=== PATIENT | male | born 1995 | race Two or more races ===

== ENCOUNTER 2017-03-20 15:54 | Emergency (ER) | payer MEDICAID ==
[~2017-03-20] VITALS: Ht 170.2 cm; Wt 59.0 kg
[2017-03-20] MEDS ORDERED: IBUPROFEN600 MG ORAL (16:12)
[2017-03-20] MEDS ORDERED: NKM (16:14)
[2017-03-20 16:17] VITALS: BP 126/77
--- NOTE | 2017-03-20 16:23 | Emergency Room Report ---
History of Present Illness General Chief Complaint: General Complaint Source: Patient Present Illness HPI 21-year-old male presents to the emergency department complaining of 4/10 in severity localized chronic dull pain in the posterior scalp x14 years. States that he noticed his symptoms after falling and hitting his head when he was a child. Patient states that he was evaluated by his primary care provider shortly after the incident who stated that everything was fine and that he did not need further workup. Patient states that he has had symptoms ever since mild swelling palpable area to the posterior scalp he states that over the course of the last 4 weeks he is noticing more prominently especially when he lays down and a place pressure on a portion of the head he will notice a 4/10 in severity discomfort. Patient denies vomiting, nausea, fevers, chills, significant changes in weight, dizziness, headaches. Denies new trauma or fall or changes from previous chronic symptoms. Allergies: Coded Allergies: No Known Allergies (Unverified , 03/20/17) Patient History Past Medical History: see triage record Past Surgical History: none Pertinent Family History: none Reviewed Nursing Documentation: PMH: Agreed, PSxH: Agreed Nursing Documentation-PMH Past Medical History: No Stated History Review of Systems All Other Systems: negative except mentioned in HPI Physical Exam Vital Signs Date Time Temp Pulse Resp B/P (MAP) Pulse Ox O2 Delivery O2 Flow Rate FiO2 03/20/17 16:07 98.6 105 16 126/77 99 Room Air Sp02 EP Interpretation: reviewed, normal General Appearance: no apparent distress, alert, GCS 15, non-toxic Head: normocephalic, atraumatic, other - palpable 1cm lipoma on posterior occipital scalp. no LAD, no open wounds. Eyes: bilateral eye normal inspection, bilateral eye PERRL ENT: hearing grossly normal, normal voice Neck: full range of motion Respiratory: lungs clear, normal breath sounds, speaking full sentences Cardiovascular #1: regular rate, rhythm Musculoskeletal: back normal, gait/station normal, normal range of motion, non- tender Neurologic: alert, oriented x3, responsive, motor strength/tone normal, sensory intact, speech normal Skin: normal color, no rash, warm/dry, well hydrated, other - palpable 1cm lipoma on posterior occipital scalp. no LAD, no open wounds. no erythema, no increased temperature to palpation. Lymphatic: no adenopathy Medical Decision Making PA Attestation Dr. Newberry is my supervising Physician whom patient management has been discussed with. Diagnostic Impression: Primary Impression: Lipoma of scalp ER Course 21-year-old male presents to the emergency department complaining of 4/10 in severity localized chronic dull pain in the posterior scalp x14 years. States that he noticed his symptoms after falling and hitting his head when he was a child. Patient states that he was evaluated by his primary care provider shortly after the incident who stated that everything was fine and that he did not need further workup. Patient states that he has had symptoms ever since mild swelling palpable area to the posterior scalp he states that over the course of the last 4 weeks he is noticing more prominently especially when he lays down and a place pressure on a portion of the head he will notice a 4/10 in severity discomfort. Patient denies vomiting, nausea, fevers, chills, significant changes in weight, dizziness, headaches. Denies new trauma or fall or changes from previous chronic symptoms. Ddx considered but are not limited to lipoma, liposarcoma, malignancy, cyst, abscess is to name a few Vital signs: are WNL, pt. is afebrile H&PE are most consistent with scalp lipoma ORDERS: none required at this time, the diagnosis is clinical ED INTERVENTIONS: None required at this time. Discussed with patient that he needs to followup with his primary care provider or a bilingual trainer if his symptoms continue to persist and they can discuss surgical removal/excision. Discussed with patient I do not feel there is an emergent condition that exists at this time and he is stable for outpatient followup and conservative management. DISCHARGE: At this time pt. is stable for d/c to home. Will provide printed patient care instructions, and any necessary prescriptions. Care plan and follow up instructions have been discussed with the patient prior to discharge. Last Vital Signs Date Time Temp Pulse Resp B/P (MAP) Pulse Ox O2 Delivery O2 Flow Rate FiO2 03/20/17 16:17 98.6 68 16 126/77 99 Room Air Disposition: HOME, SELF-CARE Condition: Stable Scripts Ibuprofen* (MOTRIN*) 600 Mg Tablet 600 MG ORAL THREE TIMES A DAY, #30 TAB 0 Refills Prov: Farida Romero P.A. 03/20/17 Patient Instructions: Lipoma Additional Instructions: Take medications as directed. Follow up with a Primary Care Provider in 3-5 days, even if your symptoms have resolved. --Please review list of primary care clinics, if you do not already have a primary care provider Return sooner to ED if new symptoms occur, or current symptoms become worse. - Please note that this Emergency Department Report was dictated using [employer] truck crane operator technology software, occasionally this can lead to erroneous entry secondary to interpretation by the dictation equipment. Farida Romero Mar 20, 2017 16:23
[2017-03-20 16:51] VITALS: BP 126/77
== END 2017-03-20 16:53 | disposition home or self-care (01) ==
LOC: EMR 16:30
DX: D17.0 Benign lipomatous neoplasm of skin and subcutaneous tissue of head, face and neck (principal)
CPT/HCPCS: 99283

== ENCOUNTER 2017-12-18 17:14 | Emergency (ER) | payer MEDICAID ==
[~2017-12-18] VITALS: Ht 170.2 cm; Wt 59.9 kg
[~2017-12-18 17:14] MED LIST: IBUPROFEN600 MG ORAL; NKM
[2017-12-18 17:29] VITALS: BP 127/85
--- NOTE | 2017-12-18 17:35 | Emergency Room Report ---
History of Present Illness General Chief Complaint: Abdominal Pain Source: Patient Present Illness HPI 22 YO male presents to the ED C/o intermittent 7/10 in severity pressure type pain in the RLQ just under the right side of the belly button that occurs when he is standing or carrying something. pt. denies ever experiencing symptoms while lying down. pt. reports has also noticed during a BM. pt. reports applying firm pressure and bending slightly forward usually relieves the pain, he reports symptoms never last more than a few minutes. estimates frequency of occurrences to be about once every week or every-other week. pt. states symptoms somewhat more frequent over the last 2 months however he states he has experienced these symptoms in the past as well just not as often. Pt. also c/o of some nausea when he wakes up in the morning with epigastric burning sensation that is relieved once he eats breakfast. pt. denies vomiting, fevers, chills, diarrhea or recent travel. Denies dysuria, hematuria or migration of his pain. Denies penile d/c, swollen tender lymph nodes, rashes, testicular pain or swelling. Allergies: Coded Allergies: No Known Allergies (Unverified , 03/20/17) Patient History Past Medical History: see triage record Past Surgical History: unable to obtain Pertinent Family History: none Immunizations: UTD Reviewed Nursing Documentation: PMH: Agreed; PSxH: Agreed Nursing Documentation-PMH Past Medical History: No Stated History Review of Systems All Other Systems: negative except mentioned in HPI Physical Exam Vital Signs Date Time Temp Pulse Resp B/P (MAP) Pulse Ox O2 Delivery O2 Flow Rate FiO2 12/18/17 17:19 97.4 75 18 127/85 96 Room Air 97.3 Sp02 EP Interpretation: reviewed, normal General Appearance: no apparent distress, alert, GCS 15, non-toxic Head: normocephalic, atraumatic Eyes: bilateral eye normal inspection, bilateral eye PERRL ENT: hearing grossly normal, normal voice Neck: full range of motion Respiratory: lungs clear, normal breath sounds, speaking full sentences Cardiovascular #1: regular rate, rhythm Gastrointestinal: normal bowel sounds, non tender, soft, no peritonitis, non- distended, no guarding, no hernia - no palpable or visible hernia Genitourinary: normal inspection, no CVA tenderness, other - no inguinal hernias- Taras = chapperone Musculoskeletal: back normal, gait/station normal, normal range of motion, non- tender Neurologic: alert, oriented x3, responsive, motor strength/tone normal, sensory intact, normal gait, speech normal, grossly normal Psychiatric: judgement/insight normal Skin: normal color, no rash, warm/dry, well hydrated Lymphatic: no adenopathy Medical Decision Making PA Attestation Dr. Santana is my supervising Physician whom patient management has been discussed with. Diagnostic Impression: Primary Impression: Abdominal pain Qualified Codes: R10.31 - Right lower quadrant pain Additional Impression: Abdominal wall hernia ER Course 22 YO male presents to the ED C/o intermittent 10/18 in severity pressure type pain in the RLQ just under the right side of the belly button that occurs when he is standing or carrying something. pt. denies ever experiencing symptoms while lying down. pt. reports has also noticed during a BM. pt. reports applying firm pressure and bending slightly forward usually relieves the pain, he reports symptoms never last more than a few minutes. estimates frequency of occurrences to be about once every week or every-other week. pt. states symptoms somewhat more frequent over the last 2 months however he states he has experienced these symptoms in the past as well just not as often. Pt. also c/o of some nausea when he wakes up in the morning with epigastric burning sensation that is relieved once he eats breakfast. pt. denies vomiting, fevers, chills, diarrhea or recent travel. Denies dysuria, hematuria or migration of his pain. Denies penile d/c, swollen tender lymph nodes, rashes, testicular pain or swelling. Ddx considered but are not limited to Hernia ( reducible, strangulated, or incarcerated ), acute appendicitis, LGV, renal calculi , IBS just to name a few. Roll Forming Supervisor for inguinal hernia exam was LUCAS Grajeda. Vital signs: are WNL, pt. is afebrile H&PE are most consistent with benign abdominal and genital exam, no obvious visible or palpable hernias, no evidence to suggest acute abdomen pt. NAD during exam. Mild TTP illicited in the RLQ close to the midline. Likely pt. has reducible hernia that has already been reduced. ORDERS: none required at this time, the diagnosis is clinical ED INTERVENTIONS: None required at this time. -I do not identify an emergent condition at this time. With current presentation , pt. is stable for close outpatient follow up/further evaluation and conservative treatment. D/w pt. to return promptly to ED with worsening or new symptoms.- Pt. verbalizes understanding and agreement with proposed treatment plan.proposed treatment plan. DISCHARGE: At this time pt. is stable for d/c to home. Will provide printed patient care instructions, and any necessary prescriptions. Care plan and follow up instructions have been discussed with the patient prior to discharge. Last Vital Signs Date Time Temp Pulse Resp B/P (MAP) Pulse Ox O2 Delivery O2 Flow Rate FiO2 12/18/17 17:29 97.3 75 18 127/85 96 Room Air 97.3 Disposition: HOME, SELF-CARE Condition: Stable Scripts Psyllium Husk (PSYLLIUM FIBER) 0.52 Gm Capsule 0.52 GM PO BID, #30 CAP Prov: Farida Romero 12/18/17 Patient Instructions: Hernia, Adult Additional Instructions: Take medications as directed. Follow up with a Primary Care Provider in 3-5 days, even if your symptoms have resolved. --Please review list of primary care clinics, if you do not already have a primary care provider Return sooner to ED if new symptoms occur, or current symptoms become worse. - Please note that this Emergency Department Report was dictated using [email or web address] technology software, occasionally this can lead to erroneous entry secondary to interpretation by the dictation equipment. Farida Romero Dec 18, 2017 17:34
[2017-12-18] MEDS ORDERED: PSYLLIUM FIBE0.52 G1 PO (18:00)
[2017-12-18 18:05] VITALS: BP 127/85
== END 2017-12-18 18:06 | disposition home or self-care (01) ==
LOC: EMR 17:41
DX: K43.9 Ventral hernia without obstruction or gangrene (principal)
CPT/HCPCS: 99282

== ENCOUNTER 2017-12-20 09:46 | Emergency (ER) | payer MEDICAID ==
[~2017-12-20] VITALS: Ht 170.2 cm; Wt 59.9 kg
[~2017-12-20 09:46] MED LIST changes: +PSYLLIUM FIBE0.52 G1 PO
[2017-12-20] MEDS ORDERED: Isovue-300 100ml vial INJ PRN (10:15)
[2017-12-20 10:20] LABS: APPEARANCE,URINE CLEAR; BILIRUBIN, URINE NEGATIVE (NEGATIVE); COLOR,URINE PALE YELLOW; GLUCOSE, URINE (UA) NEGATIVE (NEGATIVE); KETONES,URINE NEGATIVE (NEGATIVE); LEUKOCYTE ESTERASE ,URINE NEGATIVE (NEGATIVE); NITRITE,URINE NEGATIVE (NEGATIVE); PH,URINE 7 (4.5-8.0); PROTEIN,URINE NEGATIVE (NEGATIVE); UROBILINOGEN,URINE NORMAL MG/DL (0.0-1.0)
[2017-12-20 10:34] LABS: BASOPHILS % (AUTO) 1.5 % (0.0-2.0); EOSINOPHILS % (AUTO) 0.9 % (0.0-3.0); HEMOGLOBIN 15.7 G/DL (14.2-18.0); LYMPHOCYTES % (AUTO) 36.3 % (20.0-45.0); MEAN CORPUSCULAR VOLUME 92 FL (80-99); NEUTROPHILS % (AUTO) 55.3 % (45.0-75.0); PLATELET COUNT 254 K/UL (150-450); RED BLOOD COUNT 5.12 M/UL (4.70-6.10); RED CELL DISTRIBUTION WIDTH 10.9 % (11.6-14.8); WHITE BLOOD COUNT 3.8 K/UL (4.8-10.8)
[2017-12-20 10:42] LABS: ANION GAP 6 mmol/L (5-15); BLOOD UREA NITROGEN 10 mg/dL (7-18); CALCIUM 9.7 MG/DL (8.5-10.1); CARBON DIOXIDE 29 MMOL/L (21-32); CHLORIDE 105 MMOL/L (98-107); CREATININE 0.9 MG/DL (0.55-1.30); POTASSIUM 3.9 MMOL/L (3.5-5.1); SODIUM 140 MMOL/L (136-145)
[2017-12-20 10:46] LABS: ALANINE AMINOTRANSFERASE 22 U/L (12-78); ALBUMIN 4.7 G/DL (3.4-5.0); ALBUMIN/GLOBULIN RATIO 1.3 (1.0-2.7); ALKALINE PHOSPHATASE 69 U/L (46-116); ASPARTATE AMINO TRANSFERASE 16 U/L (15-37); BILIRUBIN,TOTAL 1.1 MG/DL (0.2-1.0)
[2017-12-20 11:01] LABS: BILIRUBIN,DIRECT 0.2 MG/DL (0.0-0.3)
--- NOTE | 2017-12-20 11:40 | Diagnostic Imaging Report ---
Indication: Abdominal pain Technique: Continuous helical transaxial imaging of the abdomen and pelvis was obtained from the lung bases to the pubic symphysis during intravenous contrast administration. Coronal 2-D reformats were also obtained. Study obtained in a Siemens sensation [address] Automatic Exposure Control was utilized. Total Dose length Product (DLP): 450.[address] Dose Index Volume (CTDIvol): 9.44 mGy Comparison: None Findings: There is a hiatal hernia present. The lung bases are clear. The gallbladder, liver and spleen, pancreas, adrenal glands, kidneys appear unremarkable. The appendix is normal. The urinary bladder is distended. There is no free fluid or free air. There is no evidence of bowel obstruction. There are small nodes in the right lower quadrant mesentery nonspecific in nature. Consider adenitis. IMPRESSION: Possible mesenteric adenitis given multiple small nodes in the right lower quadrant mesentery. Normal appendix. Hiatal hernia The CT scanner at [facility] is accredited by the [employer] and the scans are performed using dose optimization techniques as appropriate to a performed exam including Automatic Exposure control.
[2017-12-20 12:10] VITALS: BP 115/67
--- NOTE | 2017-12-20 14:17 | Emergency Room Report ---
History of Present Illness General Chief Complaint: Abdominal Pain Source: Patient Present Illness HPI Patient presents emergency department today complaining of right lower quadrant abdominal pain. Patient states that he has had intermittent episodes right lower quadrant abdominal pain but worse over last couple days. He complains of nausea but no vomiting. States that he had a couple episodes of loading his rectum. However he is declining a rectal exam at this time. Symptoms is noted to be moderate to severe. No other modifying factors. No other associated signs and symptoms. No other complaints were noted. Allergies: Coded Allergies: No Known Allergies (Unverified , 03/20/17) Patient History Past Medical History: none Past Surgical History: none Pertinent Family History: none Social History: Denies: smoking, alcohol use, drug use Reviewed Nursing Documentation: PMH: Agreed; PSxH: Agreed Nursing Documentation-PMH Past Medical History: No Stated History Review of Systems All Other Systems: negative except mentioned in HPI Physical Exam Vital Signs Date Time Temp Pulse Resp B/P (MAP) Pulse Ox O2 Delivery O2 Flow Rate FiO2 12/20/17 09:48 97.8 81 16 134/76 99 Room Air 97.9 Sp02 EP Interpretation: reviewed, normal General Appearance: normal inspection, well appearing, no apparent distress, alert Head: atraumatic Eyes: bilateral eye normal inspection ENT: normal ENT inspection, hearing grossly normal, normal voice Neck: normal inspection, full range of motion, supple, no bony tend Respiratory: normal inspection, lungs clear, normal breath sounds, no respiratory distress, no retraction, no wheezing Cardiovascular #1: regular rate, rhythm, no edema Gastrointestinal: normal inspection, normal bowel sounds, non tender, soft, no guarding, no hernia Genitourinary: no CVA tenderness Musculoskeletal: normal inspection, back normal, normal range of motion Neurologic: normal inspection, alert, responsive, speech normal Psychiatric: normal inspection, judgement/insight normal, mood/affect normal Skin: normal inspection, normal color, no rash Medical Decision Making Diagnostic Impression: Primary Impression: Mesenteric adenitis ER Course Patient presents to the emergency department today complaining of abdominal pain. Differential considerations include acute pancreatitis, cholecystitis, gastritis, hepatitis, appendicitis just to name a few. Patient's laboratory workup was not impressive. However given patient's tenderness in the right lower quadrant CT scan was performed. CT scan was noted to be negative for appendicitis but positive for mesenteric adenitis. Therefore patient was advised follow-up outpatient. Take symptomatically treatment return if worse and follow with outpatient GI P patient voiced understanding.Patient is advised to follow up with primary doctor in 2-3 days and return the emergency room for any worsening symptoms and as needed. Labs Test 12/20/17 09:50 12/20/17 10:15 Urine Color Pale yellow Urine Appearance Clear Urine pH 7 (4.5-8.0) Urine Specific [place] 1.010 (1.005-1.035) Urine Protein Negative (NEGATIVE) Urine Glucose (UA) Negative (NEGATIVE) Urine Ketones Negative (NEGATIVE) Urine Blood 2+ (NEGATIVE) Urine Nitrite Negative (NEGATIVE) Urine Bilirubin Negative (NEGATIVE) Urine Urobilinogen Normal MG/DL (0.0-1.0) Urine Leukocyte Esterase Negative (NEGATIVE) Urine RBC 2-4 /HPF (0 - 0) Urine WBC 0 /HPF (0 - 0) Urine Squamous Epithelial Cells None /LPF (NONE/OCC) Urine Bacteria None /HPF (NONE) White Blood Count 3.8 K/UL (4.8-10.8) Red Blood Count 5.12 M/UL (4.70-6.10) Hemoglobin 15.7 G/DL (14.2-18.0) Hematocrit 47.0 % (42.0-52.0) Mean Corpuscular Volume 92 FL (80-99) Mean Corpuscular Hemoglobin 30.7 PG (27.0-31.0) Mean Corpuscular Hemoglobin Concent 33.5 G/DL (32.0-36.0) Red Cell Distribution Width 10.9 % (11.6-14.8) Platelet Count 254 K/UL (150-450) Mean Platelet Volume 7.7 FL (6.5-10.1) Neutrophils (%) (Auto) 55.3 % (45.0-75.0) Lymphocytes (%) (Auto) 36.3 % (20.0-45.0) Monocytes (%) (Auto) 6.0 % (1.0-10.0) Eosinophils (%) (Auto) 0.9 % (0.0-3.0) Basophils (%) (Auto) 1.5 % (0.0-2.0) Sodium Level 140 MMOL/L (136-145) Potassium Level 3.9 MMOL/L (3.5-5.1) Chloride Level 105 MMOL/L (98-107) Carbon Dioxide Level 29 MMOL/L (21-32) Anion Gap 6 mmol/L (5-15) Blood Urea Nitrogen 10 mg/dL (7-18) Creatinine 0.9 MG/DL (0.55-1.30) Estimat Glomerular Filtration Rate > 60 mL/min (>60) Glucose Level 109 MG/DL (74-106) Calcium Level 9.7 MG/DL (8.5-10.1) Total Bilirubin 1.1 MG/DL (0.2-1.0) Direct Bilirubin 0.2 MG/DL (0.0-0.3) Aspartate Amino Transf (AST/SGOT) 16 U/L (15-37) Alanine Aminotransferase (ALT/SGPT) 22 U/L (12-78) Alkaline Phosphatase 69 U/L (46-116) Total Protein 8.4 G/DL (6.4-8.2) Albumin 4.7 G/DL (3.4-5.0) Globulin 3.7 g/dL Albumin/Globulin Ratio 1.3 (1.0-2.7) Lipase 93 U/L (73-393) CT/MRI/US Diagnostic Results CT/MRI/US Diagnostic Results : Imaging Test Ordered: CT and pelvis: Negative Last Vital Signs Date Time Temp Pulse Resp B/P (MAP) Pulse Ox O2 Delivery O2 Flow Rate FiO2 12/20/17 12:10 98.4 78 20 115/67 98 Room Air 98.4 Status: improved Disposition: HOME, SELF-CARE Condition: Stable Patient Instructions: Mesenteric Adenitis, Pediatric Mg Cardenas MD Dec 20, 2017 14:17
== END 2017-12-20 12:10 | disposition home or self-care (01) ==
LOC: EMR 10:04
DX: I88.0 Nonspecific mesenteric lymphadenitis (principal)
CPT/HCPCS: 36415; 74177; 80053; 81003; 82248; 83690; 85025; 96360; 99284; Q9967